=== PATIENT | male | born 1995 | race African-American/Black ===

== ENCOUNTER 2018-04-07 18:01 | Emergency (ER) | payer BC ==
[2018-04-07] MEDS ORDERED: IBUPROFEN 800 MG TABLET PO STA (19:21)
[2018-04-07] MEDS ORDERED: PENICILLIN VK 250 MG TABLET PO STA (19:47)
[2018-04-07] MEDS ORDERED: DEXAMETHASONE 10 MG/ML VIAL PO STA (19:47)
--- NOTE | 2018-04-07 19:49 | ED Physician Documentation ---
PD HPI URI - Stated complaint Stated Complaint: FLU SYMPTOMS - Chief complaint Chief Complaint: Heent - History obtained from History obtained from: Patient, Family - History of Present Illness Timing - onset: How many days ago (3) Timing duration: Days (3) Timing details: Gradual onset Pain level max: 8 Pain level now: 7 Associated symptoms: Fever, Chills, Nasal congestion, Rhinorrhea, Sore throat, Dry cough Contributing factors: Sick contact (strep) Improves by: Rest Worsened by: Activity, Other (swallowing) Recently seen: Not recently seen Review of Systems Constitutional: reports: Fever Throat: reports: Sore throat Skin: denies: Rash Musculoskeletal: denies: Back pain Neurologic: denies: Headache PD PAST MEDICAL HISTORY - Past Medical History Past Medical History: No - Past Surgical History Past Surgical History: No - Present Medications Home Medications: Ambulatory Orders Medication Instructions Recorded Confirmed Cetirizine HCl/Pseudoephedrine 1 each PO BID PRN #30 tab.er.12h 04/07/18 [Zyrtec-D Tablet] Ibuprofen [Motrin] 800 mg PO Q8H PRN #30 tablet 04/07/18 Ondansetron Odt [Zofran] 4 mg TL Q6H PRN #10 tablet 04/07/18 Penicillin V Potassium 500 mg PO Q6HR #40 tablet 04/07/18 - Allergies Allergies/Adverse Reactions: Allergies Allergy/AdvReac Type Severity Reaction Status Date / Time No Known Drug Allergies Allergy Verified 04/07/18 18:08 - Social History Does the pt smoke?: Yes Smoking Status: Former smoker Does the pt drink ETOH?: No Does the pt have substance abuse?: No - Immunizations Immunizations are current?: Yes PD ED PE NORMAL - Vitals Vital signs reviewed: Yes - General General: Alert and oriented X 3, No acute distress - HEENT HEENT: PERRL, Ears normal, Moist mucous membranes, Other (Moderate posterior pharyngeal erythema without tonsillar exudates. Uvula midline. Normal phonation. No trismus) - Neck Neck: Supple, no meningeal sign, Other (Shotty anterior lymphadenopathy) - Cardiac Cardiac: RRR, Strong equal pulses - Respiratory Respiratory: No respiratory distress, Clear bilaterally - Abdomen Abdomen: Soft, Non tender, Non distended - Back Back: No CVA TTP, No spinal TTP - Derm Derm: Warm and dry, No rash - Neuro Neuro: Alert and oriented X 3 Results - Vitals Vitals: Vital Signs - 24 hr 04/07/18 04/07/18 18:06 20:02 Temperature 37 C 36.7 C Heart Rate 80 56 L Respiratory 18 16 Rate Blood Pressure 130/94 H 130/75 O2 Saturation 99 97 Oxygen O2 Source Room air - Labs Labs: Laboratory Tests 04/07/18 04/07/18 19:21 19:21 Influenza A (Rapid) Negative Influenza B (Rapid) Negative Group A Strep Rapid POSITIVE H PD MEDICAL DECISION MAKING - ED course Complexity details: reviewed results, re-evaluated patient, considered differential, d/w patient ED course: 22-year-old male with what appears to be streptococcal pharyngitis. Positive rapid strep. Will place on antibiotics for home and continue supportive care. He is well-appearing, nontoxic. Afebrile here. Tolerating p.o. without difficulty. Patient and family counseled regarding signs and symptoms for which I believe and urgent re-evaluation would be necessary. Patient with good understanding of and agreement to plan and is comfortable going home at this time This document was made in part using voice recognition software. While efforts are made to proofread this document, sound alike and grammatical errors may occur. Departure - Departure Disposition: 01 Home, Self Care Clinical Impression: Strep pharyngitis Condition: Good Instructions: ED Strep Pharyngitis Conf Follow-Up: your,doctor in 1 week if not better [Other] Prescriptions: Penicillin V Potassium 500 mg PO Q6HR #40 tablet Cetirizine HCl/Pseudoephedrine [Zyrtec-D Tablet] 1 each PO BID PRN #30 tab.er.12h PRN Reason: Nasal Congestion Ibuprofen [Motrin] 800 mg PO Q8H PRN #30 tablet PRN Reason: PAIN &/OR FEVER Ondansetron Odt [Zofran] 4 mg TL Q6H PRN #10 tablet PRN Reason: Nausea / Vomiting Comments: Take all antibiotics until gone. Return if you worsen. Stay home and drink plenty of fluids and rest. Forms: Activity restrictions Discharge Date/Time: 04/07/18 20:03
[2018-04-07] MEDS ORDERED: CHERRY SYRUP 10 ML UDC PO ONE (19:58)
[2018-04-07 20:05] VITALS: BP 130/75
== END 2018-04-07 20:03 | disposition home or self-care (01) ==
LOC: ED 18:01
DX: Z87.891 Personal history of nicotine dependence (principal); J02.0 Streptococcal pharyngitis
CPT/HCPCS: 87275; 87276; 87430; 99283; A9270

== ENCOUNTER 2021-10-16 12:48 | Emergency (ER) | payer SELFPAY ==
[2021-10-16 12:59] VITALS: BP 138/66
--- NOTE | 2021-10-16 13:08 | ED Physician Documentation ---
PD HPI HEENT - Stated complaint Stated Complaint: CONGESTION/COUGH/NAUSEA - Chief complaint Chief Complaint: Heent - History obtained from History obtained from: Patient - Additional information Additional information: Previously healthy 26-year-old gentleman has been sick for about 4 days. Started with sore throat and then prominent nasal congestion and over the last day or 2 has developed nonbloody vomiting and diarrhea. There is no cough. No fevers. No body aches. He took a home COVID test 2 days ago which was negative. No sick contacts. He does need a work note for his 2 jobs. Review of Systems Constitutional: denies: Fever, Chills Nose: reports: Rhinorrhea / runny nose, Congestion Throat: reports: Sore throat Cardiac: denies: Chest pain / pressure, Palpitations Respiratory: denies: Dyspnea, Cough GI: reports: Vomiting, Diarrhea. denies: Abdominal Pain PD PAST MEDICAL HISTORY - Past Surgical History Past Surgical History: No - Present Medications Home Medications: Ambulatory Orders Medication Instructions Recorded Confirmed Guaifenesin/Pseudoephedrne HCl 1 each PO BID PRN #20 ea 10/16/21 [Mucinex D ER 600-60 mg Tablet] Loperamide [Imodium] 2 mg PO QID PRN #10 cap 10/16/21 Ondansetron Odt [Zofran] 4 mg TL Q6H PRN #10 tablet 10/16/21 - Allergies Allergies/Adverse Reactions: Allergies Allergy/AdvReac Type Severity Reaction Status Date / Time No Known Drug Allergies Allergy Verified 10/16/21 12:59 - Social History Does the pt smoke?: Yes Smoking Status: Former smoker Does the pt drink ETOH?: No Does the pt have substance abuse?: No - Immunizations Immunizations are current?: Yes PD ED PE NORMAL - Vitals Vital signs reviewed: Yes - General General: Alert and oriented X 3, No acute distress - HEENT HEENT: PERRL, EOMI, Ears normal, Moist mucous membranes, Pharynx benign - Neck Neck: Supple, no meningeal sign, No bony TTP, No adenopathy - Cardiac Cardiac: RRR, No murmur - Respiratory Respiratory: No respiratory distress, Clear bilaterally - Abdomen Abdomen: Normal bowel sounds, Soft, Non tender - Back Back: No CVA TTP, No spinal TTP - Derm Derm: Normal color, Warm and dry - Extremities Extremities: No edema, No calf tenderness / cord - Neuro Neuro: Alert and oriented X 3, Normal speech Results - Vitals Vitals: Vital Signs - 24 hr 10/16/21 12:54 Temperature 36.6 C Heart Rate 56 L Respiratory 14 Rate Blood Pressure 138/66 H O2 Saturation 98 Oxygen O2 Source Room air PD MEDICAL DECISION MAKING - ED course ED course: 26-year-old gentleman with nonspecific viral syndrome marked by nasal congestion, sore throat, and GI symptoms. Previously negative for COVID at home and repeat COVID testing was ordered but he just plans to do a second home COVID test. Departure - Departure Disposition: Home, Self Care Clinical Impression: Viral syndrome Condition: Good Record reviewed to determine appropriate education?: Yes Instructions: ED Viral Syndrome Prescriptions: Loperamide [Imodium] 2 mg PO QID PRN #10 cap PRN Reason: Diarrhea Guaifenesin/Pseudoephedrne HCl [Mucinex D ER 600-60 mg Tablet] 1 each PO BID PRN #20 ea PRN Reason: congestion Ondansetron Odt [Zofran] 4 mg TL Q6H PRN #10 tablet PRN Reason: Nausea / Vomiting Comments: I [facility] in [place]. I am writing some prescriptions for nausea and diarrhea as well as the congestion. Return if worse or if not better in the next 3 or 4 days. Forms: Activity restrictions
== END 2021-10-16 13:16 | disposition home or self-care (01) ==
LOC: ED 12:48
DX: B34.9 Viral infection, unspecified (principal); Z87.891 Personal history of nicotine dependence
CPT/HCPCS: 99282; 99283

== ENCOUNTER 2022-10-13 17:18 | Emergency (ER) | payer MEDICAID ==
[2022-10-13 17:24] VITALS: BP 181/93
[2022-10-13 17:43] LABS: RAPID STREP SCREEN Negative (Negative)
--- NOTE | 2022-10-13 18:22 | ED Physician Documentation ---
PD HPI HEENT - Stated complaint Stated Complaint: SORE THROAT/EAR PX - Chief complaint Chief Complaint: Heent - History obtained from History obtained from: Patient - Additional information Additional information: Patient is 27-year-old male presenting for evaluation of a sore to his mouth that he has noticed since . Patient states that it hurts to swallow. He denies any prior ulceration similar to this. He has been using acetaminophen and ibuprofen without significant improvement. He has also been using his mouthwash twice a day. Patient denies fever, cough or congestion. Review of Systems Constitutional: denies: Fever Throat: reports: Oral lesions / sores Cardiac: denies: Chest pain / pressure Respiratory: denies: Dyspnea GI: denies: Abdominal Pain : denies: Dysuria Neurologic: denies: Headache PD PAST MEDICAL HISTORY - Past Surgical History Past Surgical History: No - Present Medications Home Medications: Ambulatory Orders Medication Instructions Recorded Confirmed Lidocaine Viscous 2% [Xylocaine 5 ml MM Q4H PRN #100 ml 10/13/22 Viscous 2%] - Allergies Allergies/Adverse Reactions: Allergies Allergy/AdvReac Type Severity Reaction Status Date / Time No Known Drug Allergies Allergy Verified 10/13/22 17:24 - Social History Does the pt smoke?: Yes Smoking Status: Former smoker Does the pt drink ETOH?: No Does the pt have substance abuse?: No - Immunizations Immunizations are current?: Yes PD ED PE NORMAL - General General: Alert and oriented X 3, No acute distress, Well developed/nourished - HEENT HEENT: Atraumatic, Ears normal, Moist mucous membranes - Neck Neck: Supple, no meningeal sign - Respiratory Respiratory: No respiratory distress - Derm Derm: Warm and dry - Neuro Neuro: Normal speech PD ED PE EXPANDED - HEENT HEENT Visual: 1 - deformity (Shallow ulceration) Results - Vitals Vitals: Vital Signs - 24 hr 10/13/22 17:22 Temperature 37 C Heart Rate 66 Respiratory 16 Rate Blood Pressure 181/93 H O2 Saturation 100 Oxygen O2 Source Room air - Labs Labs: Laboratory Tests 10/13/22 17:26 Group A Strep Rapid Negative PD Medical Decision Making - ED course Complexity details: reviewed results, d/w patient ED course: Presenting for evaluation of a Shallow ulceration to the soft palate. His vital signs are stable. He has no signs of airway compromise. He has a small superficial ulceration visible without surrounding swelling.His strep test which was ordered at triage is negative. Unclear etiology for this ulceration but mike alex does report using mouthwash twice a day.He also drinks a lot of energy drinks. Discussed at this time that we would recommend supportive care With avoiding any caustic or irritating substances, soft diet. I will prescribe a small amount of viscous lidocaine to help with the pain in hopes that this will heal on its own in the next several days. Patient is counseled on concerning symptoms to return for. Departure - Departure Disposition: 01 Home, Self Care Clinical Impression: Oral ulcer Condition: Stable Instructions: ED Adrian Sore Prescriptions: Lidocaine Viscous 2% [Xylocaine Viscous 2%] 5 ml MM Q4H PRN #100 ml PRN Reason: Pain 5-7 Comments: You have a shallow ulceration to the roof of your mouth. It is unclear as to what is caused this. It could be caused by Viral infection pain at this time I do not think he needs antibiotics. Your strep test is negative. I have sent a medication to help numb up your mouth to help with the discomfort to [facility]. In the meanwhile would avoid anything caustic such as spicy, acidic, citrusy food and be cautious with any mouth rinses that you are using as they can also be very irritating. I would stick with soft food. I would expect this to get better on its own over the course of the next several days but if there is any worsening please consider reevaluation with your PCP or return to the emergency department.
== END 2022-10-13 18:29 | disposition home or self-care (01) ==
LOC: ED 17:18
DX: K12.1 Other forms of stomatitis (principal)
CPT/HCPCS: 87070; 87430; 99283